=== PATIENT | male | born 1945 | race Caucasian/White ===

== ENCOUNTER → 2016-10-04 | Outpatient (CLI) | payer MEDICARE, BC ==
[2013-02-26 11:55] VITALS: BP 131/87
[~2016-10-04] MED LIST: ANTI-FUNGAL1% TP; ASPIR LOW81 MG PO; DEPO-TESTOS200 MG/ML IM; FISH OIL1000 MG PO; TYLENOL EXTRA500 M1 PO
== END ==
LOC: LAB 16:24
DX: N40.1 Benign prostatic hyperplasia with lower urinary tract symptoms (principal); R35.1 Nocturia

== ENCOUNTER → 2016-11-07 | Outpatient (CLI) | payer MEDICARE, BC ==
[2013-02-26 11:55] VITALS: BP 131/87
== END ==
LOC: LAB 09:31
DX: E29.1 Testicular hypofunction (principal)

== ENCOUNTER → 2016-11-28 | Outpatient (CLI) | payer MEDICARE, BC ==
[2013-02-26 11:55] VITALS: BP 131/87
== END ==
LOC: LAB 08:25
DX: I48.91 Unspecified atrial fibrillation (principal); E78.00 Pure hypercholesterolemia, unspecified; D64.9 Anemia, unspecified

== ENCOUNTER → 2017-03-18 | Outpatient (CLI) | payer MEDICARE, BC ==
[2013-02-26 11:55] VITALS: BP 131/87
[2017-03-18 23:15] LABS: TESTOSTERONE 790 ng/dL (221-716)
== END ==
LOC: LAB 09:31
PROVIDERS: Urology
DX: R97.20 Elevated prostate specific antigen [PSA] (principal); E29.1 Testicular hypofunction

== ENCOUNTER → 2017-05-27 | Outpatient (CLI) | payer MEDICARE, BC ==
[2013-02-26 11:55] VITALS: BP 131/87
== END ==
LOC: LAB 10:01
DX: E29.1 Testicular hypofunction (principal)

== ENCOUNTER → 2017-06-05 | Outpatient (CLI) | payer MEDICARE, BC ==
[2013-02-26 11:55] VITALS: BP 131/87
== END ==
LOC: RAD 10:28
DX: R59.0 Localized enlarged lymph nodes (principal); M25.819 Other specified joint disorders, unspecified shoulder; Z88.1 Allergy status to other antibiotic agents; Z88.0 Allergy status to penicillin

== ENCOUNTER 2017-06-12 11:00 | Outpatient (RCR) | payer MEDICARE, BC ==
[2013-02-26 11:55] VITALS: BP 131/87
== END 2017-06-12 11:30 | disposition home or self-care (01) ==
LOC: PT 11:00
DX: S43.492D Other sprain of left shoulder joint, subsequent encounter (principal); R59.0 Localized enlarged lymph nodes; Z88.1 Allergy status to other antibiotic agents; Z88.0 Allergy status to penicillin
CPT/HCPCS: G8985-GP

== ENCOUNTER → 2017-06-16 | Outpatient (CLI) | payer MEDICARE, BC ==
[2013-02-26 11:55] VITALS: BP 131/87
[2017-06-16 12:49] LABS: EOS # 0.2 (0.04-0.40); EOS % 1.4 % (0.0-4.0); HEMATOCRIT 44.6 % (42.0-52.0); HEMOGLOBIN 14.9 g/dL (13.5-18.0); LYMPH# 3.3 (1.50-4.00); MEAN CELL VOLUME 92 fl (78-100); MEAN CORPUSCULAR HEMOGLOBIN 31 pg (27-31); MEAN CORPUSCULAR HGB CONC 33 g/dL (33-37); MEAN PLATELET VOLUME 9.5 fl (7.4-10.4); MONO # 1.3 (0.20-0.80); NEU # 5.8 (1.40-6.50); PLATELET COUNT 268 K/mm3 (130-400); RED BLOOD COUNT 4.87 M/mm3 (4.20-5.60); WHITE BLOOD COUNT 10.6 K/mm3 (4.8-10.8)
[2017-06-16 13:03] LABS: BUN/CREATININE RATIO 14.4 (6.0-26.0); POTASSIUM 4.4 mmol/L (3.6-5.0)
[2017-06-16 13:40] LABS: CALCIUM 9.2 mg/dL (8.4-10.2)
[2017-06-16 13:51] LABS: ERYTHROCYTE SEDIMENTATION RATE 31 mm/hr (0-20)
== END ==
LOC: RAD 12:39
PROVIDERS: Family Medicine
DX: R22.2 Localized swelling, mass and lump, trunk (principal); R07.89 Other chest pain; M25.512 Pain in left shoulder; Z88.1 Allergy status to other antibiotic agents; Z88.0 Allergy status to penicillin
CPT/HCPCS: Q9967

== ENCOUNTER → 2017-08-25 | Outpatient (CLI) | payer MEDICARE, BC ==
[2013-02-26 11:55] VITALS: BP 131/87
== END ==
LOC: LAB 08:39
DX: E29.1 Testicular hypofunction (principal)

== ENCOUNTER → 2017-09-15 | Outpatient (CLI) | payer MEDICARE, BC ==
[2013-02-26 11:55] VITALS: BP 131/87
[2017-09-16 02:26] LABS: TESTOSTERONE 446 ng/dL (221-716)
== END ==
LOC: LAB 07:47
PROVIDERS: Urology
DX: R97.20 Elevated prostate specific antigen [PSA] (principal); E29.1 Testicular hypofunction

== ENCOUNTER 2017-09-24 13:30 | Outpatient (RCR) | payer MEDICARE, BC ==
[2013-02-26 11:55] VITALS: BP 131/87
== END 2017-09-24 14:00 | disposition home or self-care (01) ==
LOC: PT 13:30
DX: M25.812 Other specified joint disorders, left shoulder (principal); R59.0 Localized enlarged lymph nodes
CPT/HCPCS: G8985-GP

== ENCOUNTER → 2017-10-27 | Outpatient (CLI) | payer MEDICARE, BC ==
[2013-02-26 11:55] VITALS: BP 131/87
== END ==
LOC: RAD 15:59
DX: R59.0 Localized enlarged lymph nodes (principal); Z85.71 Personal history of Hodgkin lymphoma

== ENCOUNTER → 2017-12-23 | Outpatient (CLI) | payer MEDICARE, BC ==
[2013-02-26 11:55] VITALS: BP 131/87
[2017-12-23 14:34] LABS: EOS # 0.1 (0.04-0.40); EOS % 0.7 % (0.0-4.0); HEMATOCRIT 43.4 % (42.0-52.0); HEMOGLOBIN 15.1 g/dL (13.5-18.0); LYMPH# 2.4 (1.50-4.00); MEAN CELL VOLUME 90 fl (78-100); MEAN CORPUSCULAR HEMOGLOBIN 31 pg (27-31); MEAN CORPUSCULAR HGB CONC 35 g/dL (33-37); MEAN PLATELET VOLUME 9.5 fl (7.4-10.4); MONO # 0.7 (0.20-0.80); NEU # 3.8 (1.40-6.50); PLATELET COUNT 219 K/mm3 (130-400); RED BLOOD COUNT 4.81 M/mm3 (4.20-5.60); RED CELL DISTRIBUTION WIDTH 13.3 % (11.5-14.5); WHITE BLOOD COUNT 6.9 K/mm3 (4.8-10.8)
[2017-12-23 14:45] LABS: ALBUMIN 4.3 g/dL (3.5-5.0); BUN/CREATININE RATIO 20.4 (6.0-26.0); CALCIUM 9.3 mg/dL (8.4-10.2); POTASSIUM 4.5 mmol/L (3.6-5.0); TOTAL BILIRUBIN 0.8 mg/dL (0.2-1.3); TOTAL PROTEIN 8.1 g/dL (6.3-8.2)
[2017-12-23 15:38] LABS: ERYTHROCYTE SEDIMENTATION RATE 5 mm/hr (0-20)
== END ==
LOC: LAB 14:18
PROVIDERS: Internal Medicine
DX: C81.90 Hodgkin lymphoma, unspecified, unspecified site (principal)

== ENCOUNTER → 2017-12-25 | Outpatient (CLI) | payer MEDICARE, BC ==
[2013-02-26 11:55] VITALS: BP 131/87
== END ==
LOC: RAD 08:30
DX: R59.0 Localized enlarged lymph nodes (principal)
CPT/HCPCS: Q9967

== ENCOUNTER → 2018-03-14 | Outpatient (CLI) | payer MEDICARE, BC ==
[2013-02-26 11:55] VITALS: BP 131/87
[2018-03-15 13:12] LABS: TESTOSTERONE 201 ng/dL (221-716)
== END ==
LOC: LAB 08:26
PROVIDERS: Family Medicine
DX: E29.1 Testicular hypofunction (principal); R97.20 Elevated prostate specific antigen [PSA]

== ENCOUNTER → 2018-03-27 | Outpatient (CLI) | payer MEDICARE, BC ==
[2013-02-26 11:55] VITALS: BP 131/87
[2018-03-27 08:50] LABS: CALCIUM 9.2 mg/dL (8.4-10.2); POTASSIUM 4.1 mmol/L (3.6-5.0); TOTAL PROTEIN 7.1 g/dL (6.3-8.2)
[2018-03-27 08:57] LABS: EOS # 0.1 (0.04-0.40); EOS % 1.5 % (0.0-4.0); HEMATOCRIT 42.3 % (42.0-52.0); HEMOGLOBIN 14.6 g/dL (13.5-18.0); LYMPH# 2.2 (1.50-4.00); MEAN CELL VOLUME 94 fl (78-100); MEAN CORPUSCULAR HEMOGLOBIN 33 pg (27-31); MEAN CORPUSCULAR HGB CONC 35 g/dL (33-37); MONO # 0.7 (0.20-0.80); PLATELET COUNT 224 K/mm3 (130-400); RED BLOOD COUNT 4.49 M/mm3 (4.20-5.60); RED CELL DISTRIBUTION WIDTH 13.9 % (11.5-14.5)
[2018-03-27 10:06] LABS: ERYTHROCYTE SEDIMENTATION RATE 5 mm/hr (0-20)
== END ==
LOC: LAB 08:10
PROVIDERS: Internal Medicine
DX: C81.90 Hodgkin lymphoma, unspecified, unspecified site (principal); E78.00 Pure hypercholesterolemia, unspecified; I48.91 Unspecified atrial fibrillation

== ENCOUNTER → 2018-03-31 | Outpatient (CLI) | payer MEDICARE, BC ==
[2013-02-26 11:55] VITALS: BP 131/87
== END ==
LOC: RAD 08:37
DX: R59.1 Generalized enlarged lymph nodes (principal); C81.90 Hodgkin lymphoma, unspecified, unspecified site
CPT/HCPCS: Q9967

== ENCOUNTER → 2018-05-06 | Outpatient (CLI) | payer MEDICARE, BC ==
[2013-02-26 11:55] VITALS: BP 131/87
== END ==
LOC: LAB 16:18
PROVIDERS: Radiology Radiation Oncology
DX: C81.04 Nodular lymphocyte predominant Hodgkin lymphoma, lymph nodes of axilla and upper limb (principal)

== ENCOUNTER → 2018-05-27 | Outpatient (CLI) | payer MEDICARE, BC ==
[2013-02-26 11:55] VITALS: BP 131/87
[2018-05-27 11:22] LABS: EOS # 0.1 (0.04-0.40); EOS % 1.1 % (0.0-4.0); HEMATOCRIT 47.4 % (42.0-52.0); HEMOGLOBIN 16.5 g/dL (13.5-18.0); LYMPH# 2.5 (1.50-4.00); MEAN CELL VOLUME 92 fl (78-100); MEAN CORPUSCULAR HEMOGLOBIN 32 pg (27-31); MEAN CORPUSCULAR HGB CONC 35 g/dL (33-37); MEAN PLATELET VOLUME 9.7 fl (7.4-10.4); MONO # 0.8 (0.20-0.80); NEU # 5.7 (1.40-6.50); PLATELET COUNT 246 K/mm3 (130-400); RED BLOOD COUNT 5.16 M/mm3 (4.20-5.60); WHITE BLOOD COUNT 9.2 K/mm3 (4.8-10.8)
== END ==
LOC: LAB 11:05
PROVIDERS: Radiology Radiation Oncology
DX: C81.04 Nodular lymphocyte predominant Hodgkin lymphoma, lymph nodes of axilla and upper limb (principal)

== ENCOUNTER → 2018-06-03 | Outpatient (CLI) | payer MEDICARE, BC ==
[2013-02-26 11:55] VITALS: BP 131/87
[2018-06-03 12:11] LABS: HEMATOCRIT 42.9 % (42.0-52.0); HEMOGLOBIN 15.1 g/dL (13.5-18.0); MEAN CELL VOLUME 92 fl (78-100); MEAN CORPUSCULAR HEMOGLOBIN 33 pg (27-31); MEAN CORPUSCULAR HGB CONC 35 g/dL (33-37); MEAN PLATELET VOLUME 9.9 fl (7.4-10.4); PLATELET COUNT 214 K/mm3 (130-400); RED BLOOD COUNT 4.65 M/mm3 (4.20-5.60); RED CELL DISTRIBUTION WIDTH 13.9 % (11.5-14.5); WHITE BLOOD COUNT 4.7 K/mm3 (4.8-10.8)
[2018-06-03 12:37] LABS: BAND 1 % (0-10); LYMPHOCYTE 18 % (20-51); MONOCYTE 14 % (3-10); NEUTROPHILS 66 % (42-75)
== END ==
LOC: LAB 11:28
PROVIDERS: Radiology Radiation Oncology
DX: C81.04 Nodular lymphocyte predominant Hodgkin lymphoma, lymph nodes of axilla and upper limb (principal)

== ENCOUNTER → 2018-06-10 | Outpatient (CLI) | payer MEDICARE, BC ==
[2013-02-26 11:55] VITALS: BP 131/87
[2018-06-10 12:29] LABS: HEMATOCRIT 43.2 % (42.0-52.0); HEMOGLOBIN 15.1 g/dL (13.5-18.0); MEAN CELL VOLUME 92 fl (78-100); MEAN CORPUSCULAR HEMOGLOBIN 32 pg (27-31); MEAN CORPUSCULAR HGB CONC 35 g/dL (33-37); PLATELET COUNT 170 K/mm3 (130-400); RED BLOOD COUNT 4.71 M/mm3 (4.20-5.60); RED CELL DISTRIBUTION WIDTH 13.7 % (11.5-14.5); WHITE BLOOD COUNT 4.5 K/mm3 (4.8-10.8)
[2018-06-10 12:43] LABS: LYMPHOCYTE 10 % (20-51); MONOCYTE 18 % (3-10); NEUTROPHILS 71 % (42-75)
== END ==
LOC: LAB 12:13
PROVIDERS: Radiology Radiation Oncology
DX: C81.04 Nodular lymphocyte predominant Hodgkin lymphoma, lymph nodes of axilla and upper limb (principal)

== ENCOUNTER → 2018-06-17 | Outpatient (CLI) | payer MEDICARE, BC ==
[2013-02-26 11:55] VITALS: BP 131/87
[2018-06-17 08:43] LABS: HEMATOCRIT 45.4 % (42.0-52.0); HEMOGLOBIN 15.8 g/dL (13.5-18.0); MEAN CELL VOLUME 91 fl (78-100); MEAN CORPUSCULAR HEMOGLOBIN 32 pg (27-31); MEAN CORPUSCULAR HGB CONC 35 g/dL (33-37); MEAN PLATELET VOLUME 9.7 fl (7.4-10.4); PLATELET COUNT 176 K/mm3 (130-400); RED BLOOD COUNT 4.98 M/mm3 (4.20-5.60); RED CELL DISTRIBUTION WIDTH 13.7 % (11.5-14.5); WHITE BLOOD COUNT 4.2 K/mm3 (4.8-10.8)
[2018-06-17 09:22] LABS: LYMPHOCYTE 9 % (20-51); MONOCYTE 11 % (3-10); NEUTROPHILS 78 % (42-75)
== END ==
LOC: LAB 08:12
PROVIDERS: Radiology Radiation Oncology
DX: C81.04 Nodular lymphocyte predominant Hodgkin lymphoma, lymph nodes of axilla and upper limb (principal); I48.91 Unspecified atrial fibrillation; E78.00 Pure hypercholesterolemia, unspecified; E29.1 Testicular hypofunction

== ENCOUNTER → 2018-07-16 | Outpatient (CLI) | payer MEDICARE, BC ==
[2013-02-26 11:55] VITALS: BP 131/87
== END ==
LOC: RAD 08:23
DX: R59.0 Localized enlarged lymph nodes (principal); C81.90 Hodgkin lymphoma, unspecified, unspecified site
CPT/HCPCS: Q9967

== ENCOUNTER → 2018-09-17 | Outpatient (CLI) | payer MEDICARE, BC ==
[2013-02-26 11:55] VITALS: BP 131/87
== END ==
LOC: LAB 07:48
DX: E29.1 Testicular hypofunction (principal)

== ENCOUNTER → 2018-11-11 | Outpatient (CLI) | payer MEDICARE, BC ==
[2013-02-26 11:55] VITALS: BP 131/87
[2018-11-11 13:25] LABS: HEMATOCRIT 44.7 % (42.0-52.0); HEMOGLOBIN 15.3 g/dL (13.5-18.0); MEAN CELL VOLUME 91 fl (78-100); MEAN CORPUSCULAR HEMOGLOBIN 31 pg (27-31); MEAN CORPUSCULAR HGB CONC 34 g/dL (33-37); MEAN PLATELET VOLUME 9.5 fl (7.4-10.4); PLATELET COUNT 199 K/mm3 (130-400); RED CELL DISTRIBUTION WIDTH 13.5 % (11.5-14.5); WHITE BLOOD COUNT 4.6 K/mm3 (4.8-10.8)
[2018-11-11 13:40] LABS: ALBUMIN 4.1 g/dL (3.4-4.8); POTASSIUM 4.7 mmol/L (3.5-5.1)
[2018-11-11 13:41] LABS: CALCIUM 9.5 mg/dL (8.3-10.5)
[2018-11-11 13:42] LABS: TOTAL PROTEIN 7.3 g/dL (6.2-8.1)
[2018-11-11 13:44] LABS: TOTAL BILIRUBIN 0.7 mg/dL (0.2-1.2)
[2018-11-11 14:03] LABS: LYMPHOCYTE 9 % (20-51); MONOCYTE 14 % (3-10); NEUTROPHILS 76 % (42-75)
[2018-11-11 14:38] LABS: ERYTHROCYTE SEDIMENTATION RATE 6 mm/hr (0-20)
== END ==
LOC: LAB 13:14
PROVIDERS: Internal Medicine
DX: C81.04 Nodular lymphocyte predominant Hodgkin lymphoma, lymph nodes of axilla and upper limb (principal)

== ENCOUNTER → 2018-11-12 | Outpatient (CLI) | payer MEDICARE, BC ==
[2013-02-26 11:55] VITALS: BP 131/87
== END ==
LOC: RAD 11-10 09:00
DX: C81.04 Nodular lymphocyte predominant Hodgkin lymphoma, lymph nodes of axilla and upper limb (principal); D73.89 Other diseases of spleen; J92.9 Pleural plaque without asbestos; R59.1 Generalized enlarged lymph nodes; R91.1 Solitary pulmonary nodule
CPT/HCPCS: Q9967

== ENCOUNTER → 2019-03-08 | Outpatient (CLI) | payer MEDICARE, BC ==
[2013-02-26 11:55] VITALS: BP 131/87
== END ==
LOC: LAB 08:12
DX: E29.1 Testicular hypofunction (principal)

== ENCOUNTER → 2019-03-29 | Outpatient (CLI) | payer MEDICARE, BC ==
[2013-02-26 11:55] VITALS: BP 131/87
[2019-03-29 07:55] LABS: EOS # 0.1 (0.04-0.40); EOS % 1.4 % (0.0-4.0); HEMATOCRIT 44.7 % (42.0-52.0); HEMOGLOBIN 15.6 g/dL (13.5-18.0); MEAN CELL VOLUME 91 fl (78-100); MEAN CORPUSCULAR HEMOGLOBIN 32 pg (27-31); MEAN CORPUSCULAR HGB CONC 35 g/dL (33-37); MEAN PLATELET VOLUME 9.1 fl (7.4-10.4); MONO # 0.6 (0.20-0.80); NEU # 3.6 (1.40-6.50); PLATELET COUNT 205 K/mm3 (130-400); RED BLOOD COUNT 4.89 M/mm3 (4.20-5.60); RED CELL DISTRIBUTION WIDTH 13.4 % (11.5-14.5); WHITE BLOOD COUNT 4.9 K/mm3 (4.8-10.8)
[2019-03-29 07:58] LABS: LYMPH# 0.6 (1.50-4.00)
[2019-03-29 08:19] LABS: ALBUMIN 4.1 g/dL (3.4-4.8); POTASSIUM 4.6 mmol/L (3.5-5.1)
[2019-03-29 08:21] LABS: CALCIUM 9.2 mg/dL (8.3-10.5)
[2019-03-29 08:22] LABS: TOTAL PROTEIN 7.3 g/dL (6.2-8.1)
[2019-03-29 08:24] LABS: TOTAL BILIRUBIN 0.6 mg/dL (0.2-1.2)
[2019-03-29 09:20] LABS: ERYTHROCYTE SEDIMENTATION RATE 7 mm/hr (0-20)
== END ==
LOC: LAB 07:44
PROVIDERS: Internal Medicine
DX: C81.04 Nodular lymphocyte predominant Hodgkin lymphoma, lymph nodes of axilla and upper limb (principal)

== ENCOUNTER → 2019-03-30 | Outpatient (CLI) | payer MEDICARE, BC ==
[2013-02-26 11:55] VITALS: BP 131/87
== END ==
LOC: RAD 08:45
DX: C81.04 Nodular lymphocyte predominant Hodgkin lymphoma, lymph nodes of axilla and upper limb (principal)
CPT/HCPCS: Q9967

== ENCOUNTER → 2019-04-26 | Outpatient (CLI) | payer MEDICARE, BC ==
[2013-02-26 11:55] VITALS: BP 131/87
== END ==
LOC: RAD 16:25
DX: Z51.11 Encounter for antineoplastic chemotherapy (principal); C81.04 Nodular lymphocyte predominant Hodgkin lymphoma, lymph nodes of axilla and upper limb

== ENCOUNTER → 2019-04-27 | Outpatient (CLI) | payer MEDICARE, BC ==
[2013-02-26 11:55] VITALS: BP 131/87
== END ==
LOC: LAB 07:41
DX: E29.1 Testicular hypofunction (principal)

== ENCOUNTER → 2019-05-10 | Outpatient (CLI) | payer MEDICARE, BC ==
[2013-02-26 11:55] VITALS: BP 131/87
[2019-05-10 10:11] LABS: HEMATOCRIT 39.1 % (42.0-52.0); HEMOGLOBIN 13.3 g/dL (13.5-18.0); MEAN CELL VOLUME 94 fl (78-100); MEAN CORPUSCULAR HEMOGLOBIN 32 pg (27-31); MEAN CORPUSCULAR HGB CONC 34 g/dL (33-37); MEAN PLATELET VOLUME 9.7 fl (7.4-10.4); PLATELET COUNT 117 K/mm3 (130-400); RED BLOOD COUNT 4.17 M/mm3 (4.20-5.60); RED CELL DISTRIBUTION WIDTH 13.7 % (11.5-14.5); WHITE BLOOD COUNT 20.4 K/mm3 (4.8-10.8)
[2019-05-10 10:31] LABS: BAND 3 % (0-10); LYMPHOCYTE 1 % (20-51); MONOCYTE 2 % (3-10)
[2019-05-10 10:32] LABS: NEUTROPHILS 94 % (42-75)
[2019-05-10 10:38] LABS: ALBUMIN 3.8 g/dL (3.4-4.8); POTASSIUM 4.2 mmol/L (3.5-5.1)
[2019-05-10 10:39] LABS: CALCIUM 8.8 mg/dL (8.3-10.5)
[2019-05-10 10:40] LABS: TOTAL PROTEIN 6.6 g/dL (6.2-8.1)
[2019-05-10 10:42] LABS: TOTAL BILIRUBIN 1.2 mg/dL (0.2-1.2)
== END ==
LOC: LAB 09:44
PROVIDERS: Internal Medicine
DX: C81.04 Nodular lymphocyte predominant Hodgkin lymphoma, lymph nodes of axilla and upper limb (principal)

== ENCOUNTER → 2019-05-17 | Outpatient (CLI) | payer MEDICARE, BC ==
[2013-02-26 11:55] VITALS: BP 131/87
[2019-05-17 08:07] LABS: HEMATOCRIT 40.6 % (42.0-52.0); HEMOGLOBIN 13.9 g/dL (13.5-18.0); MEAN CELL VOLUME 93 fl (78-100); MEAN CORPUSCULAR HEMOGLOBIN 32 pg (27-31); MEAN CORPUSCULAR HGB CONC 34 g/dL (33-37); MEAN PLATELET VOLUME 10.2 fl (7.4-10.4); PLATELET COUNT 152 K/mm3 (130-400); RED BLOOD COUNT 4.38 M/mm3 (4.20-5.60); RED CELL DISTRIBUTION WIDTH 13.4 % (11.5-14.5); WHITE BLOOD COUNT 7.1 K/mm3 (4.8-10.8)
[2019-05-17 08:12] LABS: ALBUMIN 3.9 g/dL (3.4-4.8); POTASSIUM 4.9 mmol/L (3.5-5.1)
[2019-05-17 08:13] LABS: CALCIUM 8.9 mg/dL (8.3-10.5)
[2019-05-17 08:14] LABS: TOTAL PROTEIN 6.8 g/dL (6.2-8.1)
[2019-05-17 08:16] LABS: TOTAL BILIRUBIN 0.4 mg/dL (0.2-1.2)
[2019-05-17 08:37] LABS: BAND 10 % (0-10); LYMPHOCYTE 5 % (20-51); METAMYELOCYTE 4 % (0-0); MONOCYTE 20 % (3-10); NEUTROPHILS 61 % (42-75)
== END ==
LOC: LAB 07:48
PROVIDERS: Internal Medicine
DX: C81.04 Nodular lymphocyte predominant Hodgkin lymphoma, lymph nodes of axilla and upper limb (principal)

== ENCOUNTER → 2019-05-24 | Outpatient (CLI) | payer MEDICARE, BC ==
[2013-02-26 11:55] VITALS: BP 131/87
[2019-05-24 12:02] LABS: HEMATOCRIT 39.5 % (42.0-52.0); HEMOGLOBIN 13.5 g/dL (13.5-18.0); MEAN CELL VOLUME 93 fl (78-100); MEAN CORPUSCULAR HEMOGLOBIN 32 pg (27-31); MEAN CORPUSCULAR HGB CONC 34 g/dL (33-37); MEAN PLATELET VOLUME 8.6 fl (7.4-10.4); PLATELET COUNT 393 K/mm3 (130-400); RED BLOOD COUNT 4.25 M/mm3 (4.20-5.60); RED CELL DISTRIBUTION WIDTH 14.6 % (11.5-14.5); WHITE BLOOD COUNT 5.9 K/mm3 (4.8-10.8)
[2019-05-24 12:11] LABS: LYMPHOCYTE 1 % (20-51); METAMYELOCYTE 3 % (0-0); MONOCYTE 15 % (3-10); MYELOCYTE 2 % (0-0); NEUTROPHILS 79 % (42-75)
[2019-05-24 12:14] LABS: POTASSIUM 4.2 mmol/L (3.5-5.1)
[2019-05-24 12:15] LABS: CALCIUM 9.1 mg/dL (8.3-10.5)
[2019-05-24 12:16] LABS: TOTAL PROTEIN 6.9 g/dL (6.2-8.1)
[2019-05-24 12:18] LABS: TOTAL BILIRUBIN 0.4 mg/dL (0.2-1.2)
== END ==
LOC: LAB 11:51
PROVIDERS: Internal Medicine
DX: C81.04 Nodular lymphocyte predominant Hodgkin lymphoma, lymph nodes of axilla and upper limb (principal)

== ENCOUNTER → 2019-05-31 | Outpatient (CLI) | payer MEDICARE, BC ==
[2013-02-26 11:55] VITALS: BP 131/87
[2019-05-31 11:45] LABS: HEMATOCRIT 35.6 % (42.0-52.0); HEMOGLOBIN 12.2 g/dL (13.5-18.0); MEAN CELL VOLUME 94 fl (78-100); MEAN CORPUSCULAR HEMOGLOBIN 32 pg (27-31); MEAN CORPUSCULAR HGB CONC 34 g/dL (33-37); MEAN PLATELET VOLUME 9.9 fl (7.4-10.4); PLATELET COUNT 145 K/mm3 (130-400); RED CELL DISTRIBUTION WIDTH 15.2 % (11.5-14.5)
[2019-05-31 11:53] LABS: ALBUMIN 3.7 g/dL (3.4-4.8)
[2019-05-31 11:54] LABS: CALCIUM 8.7 mg/dL (8.3-10.5)
[2019-05-31 11:55] LABS: TOTAL PROTEIN 6.2 g/dL (6.2-8.1)
[2019-05-31 11:57] LABS: TOTAL BILIRUBIN 0.9 mg/dL (0.2-1.2)
[2019-05-31 12:00] LABS: BAND 1 % (0-10); METAMYELOCYTE 1 % (0-0); MONOCYTE 2 % (3-10); NEUTROPHILS 96 % (42-75); WHITE BLOOD COUNT 35.2 K/mm3 (4.8-10.8)
== END ==
LOC: LAB 11:27
PROVIDERS: Internal Medicine
DX: C81.04 Nodular lymphocyte predominant Hodgkin lymphoma, lymph nodes of axilla and upper limb (principal)

== ENCOUNTER → 2019-06-07 | Outpatient (CLI) | payer MEDICARE, BC ==
[2013-02-26 11:55] VITALS: BP 131/87
[2019-06-07 14:21] LABS: HEMATOCRIT 37.7 % (42.0-52.0); HEMOGLOBIN 12.9 g/dL (13.5-18.0); MEAN CELL VOLUME 94 fl (78-100); MEAN CORPUSCULAR HEMOGLOBIN 32 pg (27-31); MEAN CORPUSCULAR HGB CONC 34 g/dL (33-37); MEAN PLATELET VOLUME 10.4 fl (7.4-10.4); PLATELET COUNT 125 K/mm3 (130-400); RED BLOOD COUNT 4.02 M/mm3 (4.20-5.60); RED CELL DISTRIBUTION WIDTH 14.9 % (11.5-14.5); WHITE BLOOD COUNT 7.2 K/mm3 (4.8-10.8)
[2019-06-07 14:25] LABS: POTASSIUM 4.6 mmol/L (3.5-5.1)
[2019-06-07 14:27] LABS: CALCIUM 8.8 mg/dL (8.3-10.5)
[2019-06-07 14:28] LABS: TOTAL PROTEIN 6.8 g/dL (6.2-8.1)
[2019-06-07 14:30] LABS: TOTAL BILIRUBIN 0.4 mg/dL (0.2-1.2)
[2019-06-07 14:38] LABS: LYMPHOCYTE 7 % (20-51); MONOCYTE 11 % (3-10)
[2019-06-07 14:39] LABS: NEUTROPHILS 82 % (42-75)
== END ==
LOC: LAB 14:05
PROVIDERS: Internal Medicine
DX: C81.04 Nodular lymphocyte predominant Hodgkin lymphoma, lymph nodes of axilla and upper limb (principal)

== ENCOUNTER → 2019-06-14 | Outpatient (CLI) | payer MEDICARE, BC ==
[2013-02-26 11:55] VITALS: BP 131/87
[2019-06-14 09:28] LABS: HEMATOCRIT 38.6 % (42.0-52.0); HEMOGLOBIN 13.3 g/dL (13.5-18.0); MEAN CELL VOLUME 93 fl (78-100); MEAN CORPUSCULAR HEMOGLOBIN 32 pg (27-31); MEAN CORPUSCULAR HGB CONC 35 g/dL (33-37); MEAN PLATELET VOLUME 8.9 fl (7.4-10.4); PLATELET COUNT 377 K/mm3 (130-400); RED BLOOD COUNT 4.14 M/mm3 (4.20-5.60); RED CELL DISTRIBUTION WIDTH 15.9 % (11.5-14.5); WHITE BLOOD COUNT 6.3 K/mm3 (4.8-10.8)
[2019-06-14 10:20] LABS: POTASSIUM 4.5 mmol/L (3.5-5.1)
[2019-06-14 10:21] LABS: CALCIUM 10.8 mg/dL (8.3-10.5)
[2019-06-14 10:23] LABS: TOTAL PROTEIN 6.8 g/dL (6.2-8.1)
[2019-06-14 10:24] LABS: TOTAL BILIRUBIN 0.4 mg/dL (0.2-1.2)
[2019-06-14 10:46] LABS: LYMPHOCYTE 5 % (20-51); NEUTROPHILS 79 % (42-75)
[2019-06-14 10:47] LABS: MONOCYTE 14 % (3-10)
== END ==
LOC: LAB 09:12
PROVIDERS: Internal Medicine
DX: C81.04 Nodular lymphocyte predominant Hodgkin lymphoma, lymph nodes of axilla and upper limb (principal)

== ENCOUNTER → 2019-06-21 | Outpatient (CLI) | payer MEDICARE, BC ==
[2013-02-26 11:55] VITALS: BP 131/87
[2019-06-21 10:03] LABS: HEMATOCRIT 34.5 % (42.0-52.0); HEMOGLOBIN 11.7 g/dL (13.5-18.0); MEAN CELL VOLUME 95 fl (78-100); MEAN CORPUSCULAR HEMOGLOBIN 32 pg (27-31); MEAN CORPUSCULAR HGB CONC 34 g/dL (33-37); MEAN PLATELET VOLUME 9.6 fl (7.4-10.4); PLATELET COUNT 105 K/mm3 (130-400); RED BLOOD COUNT 3.62 M/mm3 (4.20-5.60); RED CELL DISTRIBUTION WIDTH 16.6 % (11.5-14.5)
[2019-06-21 10:14] LABS: ALBUMIN 3.8 g/dL (3.4-4.8)
[2019-06-21 10:15] LABS: CALCIUM 8.7 mg/dL (8.3-10.5)
[2019-06-21 10:17] LABS: TOTAL PROTEIN 6.2 g/dL (6.2-8.1)
[2019-06-21 10:18] LABS: TOTAL BILIRUBIN 1.1 mg/dL (0.2-1.2)
[2019-06-21 11:03] LABS: WHITE BLOOD COUNT 30.2 K/mm3 (4.8-10.8)
[2019-06-21 11:04] LABS: MONOCYTE 2 % (3-10); NEUTROPHILS 98 % (42-75)
== END ==
LOC: LAB 09:49
PROVIDERS: Internal Medicine
DX: C81.04 Nodular lymphocyte predominant Hodgkin lymphoma, lymph nodes of axilla and upper limb (principal)

== ENCOUNTER → 2019-06-28 | Outpatient (CLI) | payer MEDICARE, BC ==
[2013-02-26 11:55] VITALS: BP 131/87
[2019-06-28 09:54] LABS: HEMATOCRIT 34.6 % (42.0-52.0); HEMOGLOBIN 11.5 g/dL (13.5-18.0); MEAN CELL VOLUME 96 fl (78-100); MEAN CORPUSCULAR HEMOGLOBIN 32 pg (27-31); MEAN CORPUSCULAR HGB CONC 33 g/dL (33-37); MEAN PLATELET VOLUME 10.3 fl (7.4-10.4); PLATELET COUNT 112 K/mm3 (130-400); RED BLOOD COUNT 3.61 M/mm3 (4.20-5.60); RED CELL DISTRIBUTION WIDTH 16.3 % (11.5-14.5); WHITE BLOOD COUNT 4.4 K/mm3 (4.8-10.8)
[2019-06-28 10:14] LABS: BAND 5 % (0-10); LYMPHOCYTE 2 % (20-51); NEUTROPHILS 76 % (42-75)
[2019-06-28 10:15] LABS: MONOCYTE 13 % (3-10); MYELOCYTE 3 % (0-0); POLYCHROMASIA 1+
[2019-06-28 10:16] LABS: ALBUMIN 3.9 g/dL (3.4-4.8)
[2019-06-28 10:17] LABS: POTASSIUM 3.9 mmol/L (3.5-5.1)
[2019-06-28 10:18] LABS: CALCIUM 8.5 mg/dL (8.3-10.5)
[2019-06-28 10:19] LABS: TOTAL PROTEIN 6.2 g/dL (6.2-8.1)
[2019-06-28 10:21] LABS: TOTAL BILIRUBIN 0.3 mg/dL (0.2-1.2)
== END ==
LOC: LAB 09:37
PROVIDERS: Internal Medicine
DX: C81.04 Nodular lymphocyte predominant Hodgkin lymphoma, lymph nodes of axilla and upper limb (principal)

== ENCOUNTER → 2019-07-05 | Outpatient (CLI) | payer MEDICARE, BC ==
[2013-02-26 11:55] VITALS: BP 131/87
[2019-07-05 09:30] LABS: HEMATOCRIT 38.8 % (42.0-52.0); HEMOGLOBIN 13.1 g/dL (13.5-18.0); MEAN CELL VOLUME 97 fl (78-100); MEAN CORPUSCULAR HEMOGLOBIN 33 pg (27-31); MEAN CORPUSCULAR HGB CONC 34 g/dL (33-37); MEAN PLATELET VOLUME 8.8 fl (7.4-10.4); PLATELET COUNT 336 K/mm3 (130-400); RED BLOOD COUNT 4.01 M/mm3 (4.20-5.60); RED CELL DISTRIBUTION WIDTH 16.9 % (11.5-14.5); WHITE BLOOD COUNT 5.5 K/mm3 (4.8-10.8)
[2019-07-05 09:45] LABS: ALBUMIN 3.9 g/dL (3.4-4.8); LYMPHOCYTE 3 % (20-51); MONOCYTE 20 % (3-10); NEUTROPHILS 76 % (42-75); POTASSIUM 4.8 mmol/L (3.5-5.1)
[2019-07-05 09:46] LABS: CALCIUM 8.5 mg/dL (8.3-10.5)
[2019-07-05 09:47] LABS: TOTAL PROTEIN 6.8 g/dL (6.2-8.1)
[2019-07-05 09:49] LABS: TOTAL BILIRUBIN 0.4 mg/dL (0.2-1.2)
== END ==
LOC: LAB 09:09
PROVIDERS: Internal Medicine
DX: C81.04 Nodular lymphocyte predominant Hodgkin lymphoma, lymph nodes of axilla and upper limb (principal)

== ENCOUNTER → 2019-07-12 | Outpatient (CLI) | payer MEDICARE, BC ==
[2013-02-26 11:55] VITALS: BP 131/87
[2019-07-12 13:01] LABS: ALBUMIN 3.6 g/dL (3.4-4.8); POTASSIUM 4.2 mmol/L (3.5-5.1)
[2019-07-12 13:02] LABS: CALCIUM 7.7 mg/dL (8.3-10.5)
[2019-07-12 13:03] LABS: TOTAL PROTEIN 5.9 g/dL (6.2-8.1)
[2019-07-12 13:05] LABS: TOTAL BILIRUBIN 0.9 mg/dL (0.2-1.2)
[2019-07-12 13:07] LABS: HEMATOCRIT 33.5 % (42.0-52.0); MEAN CELL VOLUME 99 fl (78-100); MEAN CORPUSCULAR HEMOGLOBIN 33 pg (27-31); MEAN CORPUSCULAR HGB CONC 33 g/dL (33-37); MEAN PLATELET VOLUME 10.1 fl (7.4-10.4); PLATELET COUNT 87 K/mm3 (130-400); RED BLOOD COUNT 3.38 M/mm3 (4.20-5.60); RED CELL DISTRIBUTION WIDTH 17.7 % (11.5-14.5)
[2019-07-12 13:53] LABS: LYMPHOCYTE 9 % (20-51); WHITE BLOOD COUNT 31.4 K/mm3 (4.8-10.8)
[2019-07-12 13:54] LABS: BAND 2 % (0-10); MONOCYTE 6 % (3-10); NEUTROPHILS 80 % (42-75)
== END ==
LOC: LAB 11:43
PROVIDERS: Internal Medicine
DX: C81.04 Nodular lymphocyte predominant Hodgkin lymphoma, lymph nodes of axilla and upper limb (principal)

== ENCOUNTER → 2019-07-19 | Outpatient (CLI) | payer MEDICARE, BC ==
[2013-02-26 11:55] VITALS: BP 131/87
[2019-07-19 09:34] LABS: HEMATOCRIT 36.2 % (42.0-52.0); HEMOGLOBIN 11.9 g/dL (13.5-18.0); MEAN CELL VOLUME 98 fl (78-100); MEAN CORPUSCULAR HEMOGLOBIN 32 pg (27-31); MEAN CORPUSCULAR HGB CONC 33 g/dL (33-37); MEAN PLATELET VOLUME 10.4 fl (7.4-10.4); PLATELET COUNT 112 K/mm3 (130-400); RED BLOOD COUNT 3.68 M/mm3 (4.20-5.60); RED CELL DISTRIBUTION WIDTH 16.7 % (11.5-14.5); WHITE BLOOD COUNT 3.9 K/mm3 (4.8-10.8)
[2019-07-19 09:38] LABS: POTASSIUM 4.5 mmol/L (3.5-5.1)
[2019-07-19 09:39] LABS: CALCIUM 9.1 mg/dL (8.3-10.5)
[2019-07-19 09:40] LABS: TOTAL PROTEIN 6.7 g/dL (6.2-8.1)
[2019-07-19 09:42] LABS: TOTAL BILIRUBIN 0.4 mg/dL (0.2-1.2)
[2019-07-19 10:31] LABS: LYMPHOCYTE 3 % (20-51); METAMYELOCYTE 3 % (0-0); MICROCYTOSIS 1+; MONOCYTE 19 % (3-10); MYELOCYTE 1 % (0-0); NEUTROPHILS 74 % (42-75); NUCLEATED RED BLOOD CELL 1 (0-6); OVALOCYTES 1+
== END ==
LOC: LAB 09:20
PROVIDERS: Internal Medicine
DX: C81.04 Nodular lymphocyte predominant Hodgkin lymphoma, lymph nodes of axilla and upper limb (principal)

== ENCOUNTER → 2019-08-02 | Outpatient (CLI) | payer MEDICARE, BC ==
[2013-02-26 11:55] VITALS: BP 131/87
[2019-08-02 09:11] LABS: ALBUMIN 3.6 g/dL (3.4-4.8); POTASSIUM 4.1 mmol/L (3.5-5.1)
[2019-08-02 09:12] LABS: CALCIUM 8.7 mg/dL (8.3-10.5)
[2019-08-02 09:13] LABS: TOTAL PROTEIN 5.7 g/dL (6.2-8.1)
[2019-08-02 09:14] LABS: HEMATOCRIT 31.6 % (42.0-52.0); HEMOGLOBIN 10.3 g/dL (13.5-18.0); MEAN CELL VOLUME 101 fl (78-100); MEAN CORPUSCULAR HEMOGLOBIN 33 pg (27-31); MEAN CORPUSCULAR HGB CONC 33 g/dL (33-37); MEAN PLATELET VOLUME 9.9 fl (7.4-10.4); PLATELET COUNT 101 K/mm3 (130-400); RED BLOOD COUNT 3.14 M/mm3 (4.20-5.60); RED CELL DISTRIBUTION WIDTH 17.3 % (11.5-14.5)
[2019-08-02 09:22] LABS: WHITE BLOOD COUNT 23.2 K/mm3 (4.8-10.8)
[2019-08-02 09:39] LABS: BAND 2 % (0-10)
[2019-08-02 09:40] LABS: NEUTROPHILS 98 % (42-75); OVALOCYTES 1+
== END ==
LOC: LAB 08:47
PROVIDERS: Internal Medicine
DX: C81.04 Nodular lymphocyte predominant Hodgkin lymphoma, lymph nodes of axilla and upper limb (principal)

== ENCOUNTER → 2019-08-05 | Outpatient (CLI) | payer MEDICARE, BC ==
[2013-02-26 11:55] VITALS: BP 131/87
== END ==
LOC: LAB 08:27
DX: E29.1 Testicular hypofunction (principal)

== ENCOUNTER → 2019-08-09 | Outpatient (CLI) | payer MEDICARE, BC ==
[2013-02-26 11:55] VITALS: BP 131/87
[2019-08-09 08:18] LABS: HEMOGLOBIN 11.3 g/dL (13.5-18.0); MEAN CELL VOLUME 99 fl (78-100); MEAN CORPUSCULAR HEMOGLOBIN 33 pg (27-31); MEAN CORPUSCULAR HGB CONC 33 g/dL (33-37); MEAN PLATELET VOLUME 11.1 fl (7.4-10.4); PLATELET COUNT 98 K/mm3 (130-400); RED BLOOD COUNT 3.42 M/mm3 (4.20-5.60); RED CELL DISTRIBUTION WIDTH 15.8 % (11.5-14.5); WHITE BLOOD COUNT 5.2 K/mm3 (4.8-10.8)
[2019-08-09 08:49] LABS: ALBUMIN 3.9 g/dL (3.4-4.8); BAND 5 % (0-10); LYMPHOCYTE 7 % (20-51); MICROCYTOSIS 1+; MONOCYTE 17 % (3-10); NEUTROPHILS 71 % (42-75); OVALOCYTES 1+
[2019-08-09 08:50] LABS: POTASSIUM 4.1 mmol/L (3.5-5.1)
[2019-08-09 08:51] LABS: CALCIUM 8.6 mg/dL (8.3-10.5)
[2019-08-09 08:52] LABS: TOTAL PROTEIN 6.5 g/dL (6.2-8.1)
[2019-08-09 08:54] LABS: TOTAL BILIRUBIN 0.3 mg/dL (0.2-1.2)
== END ==
LOC: LAB 07:48
PROVIDERS: Internal Medicine
DX: C81.04 Nodular lymphocyte predominant Hodgkin lymphoma, lymph nodes of axilla and upper limb (principal)

== ENCOUNTER → 2019-08-30 | Outpatient (CLI) | payer MEDICARE, BC ==
[2013-02-26 11:55] VITALS: BP 131/87
[2019-08-30 08:04] LABS: HEMATOCRIT 33.6 % (42.0-52.0); HEMOGLOBIN 11.1 g/dL (13.5-18.0); MEAN CELL VOLUME 102 fl (78-100); MEAN CORPUSCULAR HEMOGLOBIN 34 pg (27-31); MEAN CORPUSCULAR HGB CONC 33 g/dL (33-37); MEAN PLATELET VOLUME 10.7 fl (7.4-10.4); PLATELET COUNT 86 K/mm3 (130-400); RED CELL DISTRIBUTION WIDTH 15.4 % (11.5-14.5); WHITE BLOOD COUNT 3.8 K/mm3 (4.8-10.8)
[2019-08-30 08:34] LABS: ALBUMIN 3.9 g/dL (3.4-4.8); POTASSIUM 4.3 mmol/L (3.5-5.1)
[2019-08-30 08:36] LABS: TOTAL PROTEIN 6.6 g/dL (6.2-8.1)
[2019-08-30 08:38] LABS: TOTAL BILIRUBIN 0.3 mg/dL (0.2-1.2)
[2019-08-30 08:52] LABS: BAND 4 % (0-10); LYMPHOCYTE 10 % (20-51); MONOCYTE 20 % (3-10); NEUTROPHILS 66 % (42-75)
== END ==
LOC: LAB 07:44
PROVIDERS: Internal Medicine
DX: C81.04 Nodular lymphocyte predominant Hodgkin lymphoma, lymph nodes of axilla and upper limb (principal)

== ENCOUNTER → 2019-09-06 | Outpatient (CLI) | payer MEDICARE, BC ==
[2013-02-26 11:55] VITALS: BP 131/87
[2019-09-06 10:04] LABS: HEMATOCRIT 34.7 % (42.0-52.0); HEMOGLOBIN 11.2 g/dL (13.5-18.0); MEAN CELL VOLUME 102 fl (78-100); MEAN CORPUSCULAR HEMOGLOBIN 33 pg (27-31); MEAN CORPUSCULAR HGB CONC 32 g/dL (33-37); MEAN PLATELET VOLUME 8.8 fl (7.4-10.4); PLATELET COUNT 244 K/mm3 (130-400); RED CELL DISTRIBUTION WIDTH 16.2 % (11.5-14.5); WHITE BLOOD COUNT 5.6 K/mm3 (4.8-10.8)
[2019-09-06 10:22] LABS: ALBUMIN 3.8 g/dL (3.4-4.8); POTASSIUM 4.7 mmol/L (3.5-5.1)
[2019-09-06 10:24] LABS: CALCIUM 8.9 mg/dL (8.3-10.5)
[2019-09-06 10:25] LABS: TOTAL PROTEIN 6.6 g/dL (6.2-8.1)
[2019-09-06 10:27] LABS: TOTAL BILIRUBIN 0.5 mg/dL (0.2-1.2)
[2019-09-06 11:20] LABS: LYMPHOCYTE 6 % (20-51); MONOCYTE 22 % (3-10); NEUTROPHILS 72 % (42-75); OVALOCYTES 1+
== END ==
LOC: LAB 09:48
PROVIDERS: Internal Medicine
DX: C81.04 Nodular lymphocyte predominant Hodgkin lymphoma, lymph nodes of axilla and upper limb (principal)

== ENCOUNTER → 2019-09-20 | Outpatient (CLI) | payer MEDICARE, BC ==
[2013-02-26 11:55] VITALS: BP 131/87
[2019-09-20 09:28] LABS: HEMATOCRIT 38.4 % (42.0-52.0); HEMOGLOBIN 12.7 g/dL (13.5-18.0); MEAN CELL VOLUME 101 fl (78-100); MEAN CORPUSCULAR HEMOGLOBIN 33 pg (27-31); MEAN CORPUSCULAR HGB CONC 33 g/dL (33-37); MEAN PLATELET VOLUME 9.1 fl (7.4-10.4); PLATELET COUNT 244 K/mm3 (130-400); RED CELL DISTRIBUTION WIDTH 15.6 % (11.5-14.5); WHITE BLOOD COUNT 4.9 K/mm3 (4.8-10.8)
[2019-09-20 09:36] LABS: ALBUMIN 3.9 g/dL (3.4-4.8); POTASSIUM 4.8 mmol/L (3.5-5.1)
[2019-09-20 09:38] LABS: CALCIUM 8.9 mg/dL (8.3-10.5)
[2019-09-20 09:39] LABS: TOTAL PROTEIN 6.6 g/dL (6.2-8.1)
[2019-09-20 09:41] LABS: TOTAL BILIRUBIN 0.6 mg/dL (0.2-1.2)
[2019-09-20 10:12] LABS: LYMPHOCYTE 4 % (20-51); MONOCYTE 24 % (3-10); NEUTROPHILS 71 % (42-75)
== END ==
LOC: LAB 09:14
PROVIDERS: Internal Medicine
DX: C81.04 Nodular lymphocyte predominant Hodgkin lymphoma, lymph nodes of axilla and upper limb (principal)

== ENCOUNTER → 2020-02-05 | Outpatient (CLI) | payer MEDICARE, BC ==
[2013-02-26 11:55] VITALS: BP 131/87
== END ==
LOC: LAB 08:48
DX: E29.1 Testicular hypofunction (principal)

== ENCOUNTER → 2020-02-25 | Outpatient (CLI) | payer MEDICARE, BC ==
[2013-02-26 11:55] VITALS: BP 131/87
== END ==
LOC: LAB 09:02
DX: E29.1 Testicular hypofunction (principal)

== ENCOUNTER → 2020-03-15 | Outpatient (CLI) | payer MEDICARE, BC ==
[2013-02-26 11:55] VITALS: BP 131/87
[2020-03-15 10:27] LABS: ALBUMIN 4.3 g/dL (3.4-4.8); POTASSIUM 4.5 mmol/L (3.5-5.1)
[2020-03-15 10:28] LABS: CALCIUM 9.2 mg/dL (8.3-10.5)
[2020-03-15 10:29] LABS: TOTAL PROTEIN 7.3 g/dL (6.2-8.1)
[2020-03-15 10:31] LABS: TOTAL BILIRUBIN 0.6 mg/dL (0.2-1.2)
[2020-03-15 10:32] LABS: HEMATOCRIT 47.5 % (42.0-52.0); HEMOGLOBIN 16.3 g/dL (13.5-18.0); MEAN CELL VOLUME 95 fl (78-100); MEAN CORPUSCULAR HEMOGLOBIN 33 pg (27-31); MEAN CORPUSCULAR HGB CONC 34 g/dL (33-37); MEAN PLATELET VOLUME 9.3 fl (7.4-10.4); PLATELET COUNT 236 K/mm3 (130-400); RED BLOOD COUNT 5.01 M/mm3 (4.20-5.60); RED CELL DISTRIBUTION WIDTH 13.5 % (11.5-14.5); WHITE BLOOD COUNT 6.1 K/mm3 (4.8-10.8)
[2020-03-15 11:59] LABS: LYMPHOCYTE 6 % (20-51); MONOCYTE 12 % (3-10); NEUTROPHILS 82 % (42-75)
== END ==
LOC: LAB 10:06
PROVIDERS: Internal Medicine
DX: C81.04 Nodular lymphocyte predominant Hodgkin lymphoma, lymph nodes of axilla and upper limb (principal)

== ENCOUNTER → 2020-06-12 | Outpatient (CLI) | payer MEDICARE, BC ==
[2013-02-26 11:55] VITALS: BP 131/87
== END ==
LOC: LAB 09:04
DX: E29.1 Testicular hypofunction (principal)

== ENCOUNTER → 2020-06-16 | Outpatient (CLI) | payer MEDICARE, BC ==
[2013-02-26 11:55] VITALS: BP 131/87
[2020-06-16 11:09] LABS: HEMATOCRIT 47.4 % (42.0-52.0); HEMOGLOBIN 16.3 g/dL (13.5-18.0); MEAN CELL VOLUME 97 fl (78-100); MEAN CORPUSCULAR HEMOGLOBIN 33 pg (27-31); MEAN CORPUSCULAR HGB CONC 34 g/dL (33-37); MEAN PLATELET VOLUME 9.5 fl (7.4-10.4); PLATELET COUNT 235 K/mm3 (130-400); RED BLOOD COUNT 4.88 M/mm3 (4.20-5.60); RED CELL DISTRIBUTION WIDTH 13.1 % (11.5-14.5)
[2020-06-16 11:21] LABS: ALBUMIN 4.3 g/dL (3.4-4.8)
[2020-06-16 11:22] LABS: CALCIUM 9.1 mg/dL (8.3-10.5)
[2020-06-16 11:23] LABS: TOTAL PROTEIN 7.1 g/dL (6.2-8.1)
[2020-06-16 11:25] LABS: TOTAL BILIRUBIN 0.7 mg/dL (0.2-1.2)
[2020-06-16 11:43] LABS: LYMPHOCYTE 10 % (20-51); MONOCYTE 12 % (3-10); NEUTROPHILS 78 % (42-75)
== END ==
LOC: LAB 10:25
PROVIDERS: Internal Medicine
DX: C81.04 Nodular lymphocyte predominant Hodgkin lymphoma, lymph nodes of axilla and upper limb (principal); E78.00 Pure hypercholesterolemia, unspecified

== ENCOUNTER 2020-06-23 14:34 | Emergency (ER) | payer MEDICARE, BC ==
[~2020-06-23] VITALS: Ht 172.7 cm; Wt 78.2 kg
[2020-06-23 16:26] LABS: HEMOGLOBIN 16.1 g/dL (13.5-18.0); MEAN CELL VOLUME 95 fl (78-100); MEAN CORPUSCULAR HEMOGLOBIN 33 pg (27-31); MEAN CORPUSCULAR HGB CONC 35 g/dL (33-37); MEAN PLATELET VOLUME 9.7 fl (7.4-10.4); PLATELET COUNT 217 K/mm3 (130-400); RED BLOOD COUNT 4.83 M/mm3 (4.20-5.60); RED CELL DISTRIBUTION WIDTH 12.8 % (11.5-14.5); WHITE BLOOD COUNT 5.1 K/mm3 (4.8-10.8)
[2020-06-23 16:30] LABS: ALBUMIN 4.2 g/dL (3.4-4.8); POTASSIUM 4.6 mmol/L (3.5-5.1); SODIUM 138 mmol/L (136-145)
[2020-06-23 16:31] LABS: CALCIUM 9.1 mg/dL (8.3-10.5)
[2020-06-23 16:32] LABS: GLUCOSE 96 mg/dL (75-110)
[2020-06-23 16:33] LABS: CARBON DIOXIDE 26 mmol/L (23-31)
[2020-06-23 16:34] LABS: TOTAL BILIRUBIN 0.7 mg/dL (0.2-1.2)
[2020-06-23 16:37] LABS: AST-SGOT 29 U/L (5-34); LYMPHOCYTE 11 % (20-51); MONOCYTE 14 % (3-10); NEUTROPHILS 72 % (42-75)
[2020-06-23 16:39] LABS: ALT/SGPT 23 U/L (0-55)
[2020-06-23 16:47] LABS: TROPONIN-I < 0.03 ng/mL (<0.030)
[2020-06-23 16:53] LABS: D-DIMER 0.26 mg/L FEU (0.15-0.50)
[2020-06-23 17:31] LABS: PH-URINE 5.5 (5.0 - 8.0); URINE APPEARANCE CLEAR; URINE BILIRUBIN NEGATIVE (NEGATIVE); URINE BLOOD NEGATIVE (NEGATIVE); URINE COLOR YELLOW; URINE GLUCOSE NEGATIVE (NEGATIVE); URINE KETONE NEGATIVE (NEGATIVE); URINE LEUKOCYTE ESTERASE NEGATIVE (NEGATIVE); URINE MUCUS PRESENT (NOT PRESENT); URINE NITRATE NEGATIVE (NEGATIVE); URINE PROTEIN(semi-quant) 1+ mg/dL (NEGATIVE); URINE UROBILINOGEN NORMAL (NORMAL)
[2020-06-23 18:10] VITALS: BP 119/92
== END 2020-06-23 18:15 | disposition home or self-care (01) ==
LOC: ED 14:34
PROVIDERS: Physician Assistant
DX: S09.90XA Unspecified injury of head, initial encounter (principal); R55 Syncope and collapse; I48.20 Chronic atrial fibrillation, unspecified; Z79.01 Long term (current) use of anticoagulants; Z88.0 Allergy status to penicillin; Z79.82 Long term (current) use of aspirin

== ENCOUNTER → 2020-09-14 | Outpatient (CLI) | payer MEDICARE, BC ==
[2020-09-14 08:08] LABS: HEMATOCRIT 48.2 % (42.0-52.0); HEMOGLOBIN 16.4 g/dL (13.5-18.0); MEAN CELL VOLUME 97 fl (78-100); MEAN CORPUSCULAR HEMOGLOBIN 33 pg (27-31); MEAN CORPUSCULAR HGB CONC 34 g/dL (33-37); MEAN PLATELET VOLUME 9.6 fl (7.4-10.4); PLATELET COUNT 252 K/mm3 (130-400); RED BLOOD COUNT 4.97 M/mm3 (4.20-5.60); RED CELL DISTRIBUTION WIDTH 13.6 % (11.5-14.5); WHITE BLOOD COUNT 6.1 K/mm3 (4.8-10.8)
[2020-09-14 08:09] LABS: ALBUMIN 4.2 g/dL (3.4-4.8); POTASSIUM 4.5 mmol/L (3.5-5.1)
[2020-09-14 08:11] LABS: CALCIUM 9.2 mg/dL (8.3-10.5)
[2020-09-14 08:12] LABS: TOTAL PROTEIN 7.1 g/dL (6.2-8.1)
[2020-09-14 08:14] LABS: TOTAL BILIRUBIN 0.9 mg/dL (0.2-1.2)
[2020-09-14 08:19] LABS: BAND 1 % (0-10); LYMPHOCYTE 10 % (20-51); MONOCYTE 8 % (3-10); NEUTROPHILS 79 % (42-75)
== END ==
LOC: LAB 07:45
PROVIDERS: Internal Medicine
DX: C81.04 Nodular lymphocyte predominant Hodgkin lymphoma, lymph nodes of axilla and upper limb (principal)

== ENCOUNTER → 2020-10-19 | Outpatient (CLI) | payer MEDICARE, BC | LOC: LAB 13:01 | DX: Z12.5 Encounter for screening for malignant neoplasm of prostate (principal); Z80.42 Family history of malignant neoplasm of prostate ==

== ENCOUNTER → 2020-12-22 | Outpatient (CLI) | payer MEDICARE, BC ==
[2020-12-22 09:47] LABS: HEMATOCRIT 44.9 % (42.0-52.0); HEMOGLOBIN 15.2 g/dL (13.5-18.0); MEAN CELL VOLUME 97 fl (78-100); MEAN CORPUSCULAR HEMOGLOBIN 33 pg (27-31); MEAN CORPUSCULAR HGB CONC 34 g/dL (33-37); MEAN PLATELET VOLUME 9.3 fl (7.4-10.4); PLATELET COUNT 198 K/mm3 (130-400); RED BLOOD COUNT 4.61 M/mm3 (4.20-5.60); RED CELL DISTRIBUTION WIDTH 13.1 % (11.5-14.5); WHITE BLOOD COUNT 4.8 K/mm3 (4.8-10.8)
[2020-12-22 09:57] LABS: ALBUMIN 4.1 g/dL (3.4-4.8)
[2020-12-22 09:58] LABS: POTASSIUM 4.5 mmol/L (3.5-5.1)
[2020-12-22 09:59] LABS: CALCIUM 8.9 mg/dL (8.3-10.5)
[2020-12-22 10:00] LABS: TOTAL PROTEIN 6.9 g/dL (6.2-8.1)
[2020-12-22 10:02] LABS: TOTAL BILIRUBIN 0.7 mg/dL (0.2-1.2)
[2020-12-22 11:15] LABS: LYMPHOCYTE 8 % (20-51); MONOCYTE 12 % (3-10); NEUTROPHILS 79 % (42-75)
== END ==
LOC: LAB 09:36
PROVIDERS: Internal Medicine
DX: C81.04 Nodular lymphocyte predominant Hodgkin lymphoma, lymph nodes of axilla and upper limb (principal)

== ENCOUNTER → 2020-12-25 | Outpatient (CLI) | payer MEDICARE, BC | LOC: LAB 09:55 | DX: E29.1 Testicular hypofunction (principal) ==

== ENCOUNTER → 2021-01-10 | Outpatient (CLI) | payer MEDICARE, BC | LOC: LAB 08:13 | DX: R94.7 Abnormal results of other endocrine function studies (principal) ==

== ENCOUNTER → 2021-03-24 | Outpatient (CLI) | payer MEDICARE, BC ==
[2021-03-24 14:19] LABS: BASO # 0.02 K/mm3 (0.02-0.10); EOS # 0.07 K/mm3 (0.04-0.40); HEMATOCRIT 46.1 % (42.0-52.0); LYMPH# 0.72 K/mm3 (1.50-4.00); MEAN CELL VOLUME 98 fl (78-100); MEAN CORPUSCULAR HEMOGLOBIN 34 pg (27-31); MEAN CORPUSCULAR HGB CONC 35 g/dL (33-37); MEAN PLATELET VOLUME 9.4 fl (7.4-10.4); MONO # 0.61 K/mm3 (0.20-0.80); NEU # 5.45 K/mm3 (1.40-6.50); PLATELET COUNT 207 K/mm3 (130-400); RED BLOOD COUNT 4.72 M/mm3 (4.20-5.60); RED CELL DISTRIBUTION WIDTH 12.9 % (11.5-14.5); WHITE BLOOD COUNT 6.9 K/mm3 (4.8-10.8)
[2021-03-24 14:30] LABS: ALBUMIN 4.1 g/dL (3.4-4.8); POTASSIUM 4.5 mmol/L (3.5-5.1)
[2021-03-24 14:33] LABS: TOTAL PROTEIN 7.1 g/dL (6.2-8.1)
[2021-03-24 14:34] LABS: TOTAL BILIRUBIN 0.9 mg/dL (0.2-1.2)
== END ==
LOC: LAB 13:56
PROVIDERS: Internal Medicine
DX: C81.04 Nodular lymphocyte predominant Hodgkin lymphoma, lymph nodes of axilla and upper limb (principal)

== ENCOUNTER → 2021-03-27 | Outpatient (CLI) | payer MEDICARE, BC | LOC: RAD 08:47 | DX: C81.04 Nodular lymphocyte predominant Hodgkin lymphoma, lymph nodes of axilla and upper limb (principal); R91.1 Solitary pulmonary nodule | CPT/HCPCS: Q9967 ==

== ENCOUNTER → 2021-04-12 | Day surgery (SDC) | payer MEDICARE, BC | END | disposition home or self-care (01) | LOC: MSO 08:10 | DX: R93.3 Abnormal findings on diagnostic imaging of other parts of digestive tract (principal); K57.30 Diverticulosis of large intestine without perforation or abscess without bleeding; I48.91 Unspecified atrial fibrillation; I48.0 Paroxysmal atrial fibrillation; G62.9 Polyneuropathy, unspecified; I10 Essential (primary) hypertension; E29.1 Testicular hypofunction; Z86.010 Personal history of colon polyps; Z79.899 Other long term (current) drug therapy; Z79.01 Long term (current) use of anticoagulants | CPT/HCPCS: 00812; J2704; J7120 ==

== ENCOUNTER → 2021-07-03 | Outpatient (CLI) | payer MEDICARE, BC ==
[2021-07-03 10:47] LABS: BASO # 0.03 K/mm3 (0.02-0.10); EOS # 0.06 K/mm3 (0.04-0.40); EOS % 1.1 % (0.0-4.0); HEMATOCRIT 45.7 % (42.0-52.0); HEMOGLOBIN 15.9 g/dL (13.5-18.0); LYMPH# 0.69 K/mm3 (1.50-4.00); MEAN CELL VOLUME 96 fl (78-100); MEAN CORPUSCULAR HEMOGLOBIN 34 pg (27-31); MEAN CORPUSCULAR HGB CONC 35 g/dL (33-37); MEAN PLATELET VOLUME 9.4 fl (7.4-10.4); MONO # 0.64 K/mm3 (0.20-0.80); NEU # 4.25 K/mm3 (1.40-6.50); PLATELET COUNT 210 K/mm3 (130-400); RED BLOOD COUNT 4.75 M/mm3 (4.20-5.60); RED CELL DISTRIBUTION WIDTH 13.1 % (11.5-14.5); WHITE BLOOD COUNT 5.7 K/mm3 (4.8-10.8)
[2021-07-03 10:51] LABS: ALBUMIN 4.2 g/dL (3.4-4.8); POTASSIUM 4.8 mmol/L (3.5-5.1)
[2021-07-03 10:54] LABS: TOTAL PROTEIN 6.8 g/dL (6.2-8.1)
[2021-07-03 10:56] LABS: TOTAL BILIRUBIN 0.7 mg/dL (0.2-1.2)
== END ==
LOC: LAB 10:16
PROVIDERS: Internal Medicine
DX: C81.04 Nodular lymphocyte predominant Hodgkin lymphoma, lymph nodes of axilla and upper limb (principal)

== ENCOUNTER → 2021-08-16 | Outpatient (CLI) | payer MEDICARE, BC | LOC: VAS 10:40 | DX: R60.0 Localized edema (principal) ==

== ENCOUNTER → 2021-10-01 | Outpatient (CLI) | payer MEDICARE, BC ==
[2021-10-01 09:33] LABS: BASO # 0.01 K/mm3 (0.02-0.10); EOS # 0.06 K/mm3 (0.04-0.40); EOS % 1.1 % (0.0-4.0); HEMOGLOBIN 15.3 g/dL (13.5-18.0); LYMPH# 0.62 K/mm3 (1.50-4.00); MEAN CELL VOLUME 94 fl (78-100); MEAN CORPUSCULAR HEMOGLOBIN 33 pg (27-31); MEAN CORPUSCULAR HGB CONC 36 g/dL (33-37); MEAN PLATELET VOLUME 9.6 fl (7.4-10.4); MONO # 0.59 K/mm3 (0.20-0.80); NEU # 4.04 K/mm3 (1.40-6.50); PLATELET COUNT 177 K/mm3 (130-400); RED BLOOD COUNT 4.59 M/mm3 (4.20-5.60); RED CELL DISTRIBUTION WIDTH 12.4 % (11.5-14.5); WHITE BLOOD COUNT 5.4 K/mm3 (4.8-10.8)
[2021-10-01 10:20] LABS: ALBUMIN 4.1 g/dL (3.4-4.8); POTASSIUM 4.4 mmol/L (3.5-5.1)
[2021-10-01 10:21] LABS: CALCIUM 9.3 mg/dL (8.3-10.5)
[2021-10-01 10:23] LABS: TOTAL PROTEIN 6.9 g/dL (6.2-8.1)
[2021-10-01 10:24] LABS: TOTAL BILIRUBIN 0.7 mg/dL (0.2-1.2)
== END ==
LOC: RAD 08:52 → LAB 08:52 → RAD 09:00
PROVIDERS: Internal Medicine
DX: C81.04 Nodular lymphocyte predominant Hodgkin lymphoma, lymph nodes of axilla and upper limb (principal)
CPT/HCPCS: Q9967

== ENCOUNTER → 2021-12-25 | Outpatient (CLI) | payer MEDICARE, BC ==
[2021-12-25 08:35] LABS: HEMATOCRIT 45.3 % (42.0-52.0); HEMOGLOBIN 15.3 g/dL (13.5-18.0); MEAN PLATELET VOLUME 9.4 fl (7.4-10.4); RED BLOOD COUNT 4.63 M/mm3 (4.20-5.60); RED CELL DISTRIBUTION WIDTH 13.2 % (11.5-14.5); WHITE BLOOD COUNT 4.5 K/mm3 (4.8-10.8)
[2021-12-25 08:45] LABS: ALBUMIN 4.3 g/dL (3.4-4.8); POTASSIUM 5.5 mmol/L (3.5-5.1)
[2021-12-25 08:46] LABS: CALCIUM 9.8 mg/dL (8.3-10.5)
[2021-12-25 08:47] LABS: TOTAL PROTEIN 7.2 g/dL (6.2-8.1)
[2021-12-25 08:49] LABS: TOTAL BILIRUBIN 1.2 mg/dL (0.2-1.2)
== END ==
LOC: LAB 08:12
PROVIDERS: Family Medicine
DX: E78.00 Pure hypercholesterolemia, unspecified (principal); C81.40 Lymphocyte-rich Hodgkin lymphoma, unspecified site; I48.91 Unspecified atrial fibrillation

== ENCOUNTER → 2022-01-01 | Outpatient (CLI) | payer MEDICARE, BC ==
[2022-01-01 10:05] LABS: POTASSIUM 4.5 mmol/L (3.5-5.1)
[2022-01-01 10:07] LABS: CALCIUM 9.2 mg/dL (8.3-10.5)
== END ==
LOC: LAB 09:45
PROVIDERS: Family Medicine
DX: E87.5 Hyperkalemia (principal)

== ENCOUNTER → 2022-02-05 | Outpatient (CLI) | payer MEDICARE, BC | LOC: LAB 09:15 | PROVIDERS: Family Medicine | DX: E29.1 Testicular hypofunction (principal) ==

== ENCOUNTER → 2023-05-21 | Day surgery (SDC) | payer MEDICARE, BC | LOC: MSO 10:09 | DX: H25.812 Combined forms of age-related cataract, left eye (principal) | CPT/HCPCS: 00142; J0171; J2250; V2632 ==

== ENCOUNTER → 2023-06-20 | Outpatient (CLI) | payer MEDICARE, BC ==
[2023-06-20 09:13] LABS: BASO # 0.02 K/mm3 (0.02-0.10); EOS % 1.6 % (0.0-4.0); HEMOGLOBIN 17.6 g/dL (13.5-18.0); LYMPH# 0.92 K/mm3 (1.50-4.00); MEAN CELL VOLUME 96 fl (78-100); MEAN CORPUSCULAR HEMOGLOBIN 33 pg (27-31); MEAN CORPUSCULAR HGB CONC 35 g/dL (33-37); MONO # 0.69 K/mm3 (0.20-0.80); NEU # 4.55 K/mm3 (1.40-6.50); PLATELET COUNT 187 K/mm3 (130-400); RED BLOOD COUNT 5.32 M/mm3 (4.20-5.60); RED CELL DISTRIBUTION WIDTH 13.3 % (11.5-14.5); WHITE BLOOD COUNT 6.3 K/mm3 (4.8-10.8)
[2023-06-20 09:34] LABS: ALBUMIN 4.3 g/dL (3.4-4.8)
[2023-06-20 09:35] LABS: CALCIUM 9.3 mg/dL (8.3-10.5)
[2023-06-20 09:37] LABS: TOTAL PROTEIN 7.2 g/dL (6.2-8.1)
[2023-06-20 09:39] LABS: TOTAL BILIRUBIN 1.3 mg/dL (0.2-1.2)
== END ==
LOC: LAB 08:58
PROVIDERS: Nurse Practitioner
DX: C81.04 Nodular lymphocyte predominant Hodgkin lymphoma, lymph nodes of axilla and upper limb (principal)

== ENCOUNTER → 2023-06-24 | Outpatient (CLI) | payer MEDICARE, BC | LOC: RAD 08:55 | DX: Z08 Encounter for follow-up examination after completed treatment for malignant neoplasm (principal); Z85.72 Personal history of non-Hodgkin lymphomas | CPT/HCPCS: Q9967 ==

== ENCOUNTER → 2023-08-15 | Outpatient (CLI) | payer MEDICARE, BC | LOC: LAB 08:27 | DX: R97.20 Elevated prostate specific antigen [PSA] (principal); Z80.42 Family history of malignant neoplasm of prostate ==

== ENCOUNTER → 2024-01-01 | Outpatient (CLI) | payer MEDICARE, BC ==
[2024-01-01 09:40] LABS: BASO # 0.01 K/mm3 (0.02-0.10); EOS # 0.08 K/mm3 (0.04-0.40); EOS % 1.5 % (0.0-4.0); HEMATOCRIT 47.2 % (42.0-52.0); HEMOGLOBIN 15.9 g/dL (13.5-18.0); LYMPH# 0.74 K/mm3 (1.50-4.00); MEAN CELL VOLUME 98 fl (78-100); MEAN CORPUSCULAR HEMOGLOBIN 33 pg (27-31); MEAN CORPUSCULAR HGB CONC 34 g/dL (33-37); MEAN PLATELET VOLUME 9.4 fl (7.4-10.4); MONO # 0.64 K/mm3 (0.20-0.80); NEU # 3.87 K/mm3 (1.40-6.50); PLATELET COUNT 196 K/mm3 (130-400); RED BLOOD COUNT 4.82 M/mm3 (4.20-5.60); RED CELL DISTRIBUTION WIDTH 12.9 % (11.5-14.5); WHITE BLOOD COUNT 5.4 K/mm3 (4.8-10.8)
[2024-01-01 09:50] LABS: ALBUMIN 3.8 g/dL (3.4-4.8)
[2024-01-01 09:51] LABS: CALCIUM 9.3 mg/dL (8.3-10.5)
[2024-01-01 09:52] LABS: TOTAL PROTEIN 6.5 g/dL (6.2-8.1)
[2024-01-01 09:54] LABS: TOTAL BILIRUBIN 0.9 mg/dL (0.2-1.2)
== END ==
LOC: LAB 09:19
PROVIDERS: Nurse Practitioner
DX: C81.90 Hodgkin lymphoma, unspecified, unspecified site (principal)

== ENCOUNTER → 2024-01-08 | Outpatient (CLI) | payer MEDICARE, BC | LOC: LAB 15:41 | DX: E78.2 Mixed hyperlipidemia (principal) ==

== ENCOUNTER → 2024-06-03 | Outpatient (CLI) | payer MEDICARE, BC ==
[2024-06-03 08:44] LABS: HEMOGLOBIN 17.2 g/dL (13.5-18.0); MEAN PLATELET VOLUME 9.4 fl (7.4-10.4); RED BLOOD COUNT 5.17 M/mm3 (4.20-5.60); RED CELL DISTRIBUTION WIDTH 13.2 % (11.5-14.5); WHITE BLOOD COUNT 5.7 K/mm3 (4.8-10.8)
[2024-06-03 08:45] LABS: ALBUMIN 4.1 g/dL (3.4-4.8)
[2024-06-03 08:47] LABS: CALCIUM 9.7 mg/dL (8.3-10.5)
[2024-06-03 08:48] LABS: TOTAL PROTEIN 6.9 g/dL (6.2-8.1)
[2024-06-03 08:50] LABS: TOTAL BILIRUBIN 0.9 mg/dL (0.2-1.2)
== END ==
LOC: LAB 08:29
PROVIDERS: Family Medicine
DX: Z12.5 Encounter for screening for malignant neoplasm of prostate (principal); Z79.891 Long term (current) use of opiate analgesic

== ENCOUNTER → 2024-07-06 | Outpatient (CLI) | payer MEDICARE, BC ==
[2024-07-06 11:10] LABS: BASO # 0.02 K/mm3 (0.02-0.10); EOS # 0.07 K/mm3 (0.04-0.40); EOS % 1.1 % (0.0-4.0); HEMATOCRIT 48.6 % (42.0-52.0); HEMOGLOBIN 16.7 g/dL (13.5-18.0); LYMPH# 0.86 K/mm3 (1.50-4.00); MEAN CELL VOLUME 97 fl (78-100); MEAN CORPUSCULAR HEMOGLOBIN 33 pg (27-31); MEAN CORPUSCULAR HGB CONC 34 g/dL (33-37); MEAN PLATELET VOLUME 9.4 fl (7.4-10.4); MONO # 0.73 K/mm3 (0.20-0.80); NEU # 4.42 K/mm3 (1.40-6.50); PLATELET COUNT 194 K/mm3 (130-400); RED BLOOD COUNT 5.01 M/mm3 (4.20-5.60); RED CELL DISTRIBUTION WIDTH 13.3 % (11.5-14.5); WHITE BLOOD COUNT 6.1 K/mm3 (4.8-10.8)
[2024-07-06 11:11] LABS: ALBUMIN 3.9 g/dL (3.4-4.8)
[2024-07-06 11:13] LABS: CALCIUM 9.1 mg/dL (8.3-10.5)
[2024-07-06 11:14] LABS: TOTAL PROTEIN 6.9 g/dL (6.2-8.1)
[2024-07-06 11:16] LABS: TOTAL BILIRUBIN 0.8 mg/dL (0.2-1.2)
== END ==
LOC: LAB 10:53
PROVIDERS: Nurse Practitioner
DX: Z85.72 Personal history of non-Hodgkin lymphomas (principal)

== ENCOUNTER → 2024-07-08 | Outpatient (CLI) | payer MEDICARE, BC ==
[~2024-07-08] MED LIST changes: +Iohexol 300 - 100 ML VIAL IV ONE; +NS 100 ML IV ONE
== END ==
LOC: RAD 08:48
DX: R91.1 Solitary pulmonary nodule (principal); Z85.72 Personal history of non-Hodgkin lymphomas
CPT/HCPCS: Q9967